=== PATIENT | male | born 1985 ===

== ENCOUNTER 2018-11-28 08:03 | Emergency (ER) | payer OTHER ==
[2018-11-28 08:22] VITALS: BP 139/79
[2018-11-28] MEDS ORDERED: IBUPROFEN 800 MG TABLET PO ONE (09:22)
[2018-11-28] MEDS ORDERED: LIDOCAINE 5% (700 MG) TRANSDERMAL ADH..PATCH TP ONE (09:22)
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
== END 2018-11-28 09:40 | disposition home or self-care (01) ==
LOC: ER 08:03
DX: S16.1XXA Strain of muscle, fascia and tendon at neck level, initial encounter (principal); M54.2 Cervicalgia; R51 Headache; V49.40XA Driver injured in collision with unspecified motor vehicles in traffic accident, initial encounter; I10 Essential (primary) hypertension
CPT/HCPCS: 99283